=== PATIENT | female | born 1985 | race Caucasian/White ===

== ENCOUNTER 2020-07-07 16:50 | Emergency (ER) | payer BC ==
[~2020-07-07] VITALS: Ht 177.8 cm; Wt 71.1 kg
--- NOTE | 2020-07-07 17:12 | PHYS DOC ---
Adult General Chief Complaint Chief Complaint: CONGESTION HPI HPI Patient is a 34-year-old female presenting with COVID-19 symptoms. She was diagnosed with COVID-19 infection 6 days ago by her primary care doctor. She is currently on day 9 of symptoms. She reports classic URI-like symptoms, postnasal drip, and a dry nonproductive cough. She has been afebrile since onset but admits subjective fevers and chills. Patient reports being self quarantined and being able to tolerate p.o. intake despite decreased appetite. States her nausea is worsened in last 24 hours and has had increased difficulty keeping down p.o. fluids. She reports x1 episode of nonbloody nonbilious emesis yesterday evening. She has been afraid to consume anything by mouth today due to fear of nausea and emesis prompting her to visit our ER for evaluation Review of Systems Review of Systems Fourteen body systems of review of systems have been reviewed. See HPI for pertinent positives and negative responses, other swanson all other systems are negative, non-pertinent or non-contributory Physical Exam Physical Exam General: Appears well, non toxic, and comfortable Skin: Warm, dry. Normal for ethnicity. HEENT: Atraumatic. PERRLA. Rhinorrhea and congestion, postnasal drip present. Nasal turbinates boggy b/l. Moist mucous membranes. Uvula midline. Maintaining secretions. No phonation changes. Neck: Trachea midline. Normal ROM. No stridor. Respiratory: Normal WOB. CTAB w/o w/r/r. No tachypnea. Cardiovascular: Regular rate and rhythm. Normal peripheral perfusion. Abdomen: Soft. Non tender. No distension. Back: Normal ROM. Musculoskeletal: No swelling or deformity. Neuro: Alert and oriented x 4. MAEE. Lymph: No cervical LAD. Psych: Normal affect and mood. Current Patient Data Vital Signs Vital Signs Date Time Temp Pulse Resp B/P (MAP) Pulse Ox O2 Delivery O2 Flow Rate FiO2 07/07/20 17:09 98.1 96 18 129/86 (100) 99 Room Air EKG EKG [] Radiology/Procedures Radiology/Procedures EXAM: CHEST ONE VIEW. HISTORY: COVID-19, shortness of breath. COMPARISON: None. FINDINGS: A frontal view of the chest is obtained. There are mild airspace infiltrates in the left base. There is no pneumothorax or pleural effusion. The heart is not enlarged. Calcific densities project along the left humeral greater tuberosity. IMPRESSION: 1. Mild left basilar infiltrates. 2. Correlate for calcific tendinitis of the left rotator cuff insertion. Electronically signed by: Shelby Joy MD (07/07/2020 6:07 PM) [facility] Heart Score HEART Score for Chest Pain: HEART Score for Chest Pain Response (Comments) Value History Slighlty/Non-Suspicious 0 Age < 45 0 Risk Factors No Risk Factors 0 Total 0 Risk Factors: Risk Factors: DM, Current or recent (<one month) smoker, HTN, HLP, family history of CAD, obesity. Risk Scores: Risk Factors: DM, Current or recent (<one month) smoker, HTN, HLP, family history of CAD, obesity. Course & Med Decision Making Course & Med Decision Making Pertinent Labs and Imaging studies reviewed. (See chart for details) Discussed with the patient all findings and diagnostic testing as well as the need to follow up with PCP for further evaluation and treatment when safe to do so or return to the ED if any new or worsening symptoms. I advised need for continue self quarantine and supportive care practices. Patient responded to Zofran today, I have given her prescription for this for as needed nausea. I discussed no indication for further diagnostic work-up or intervention in ER setting today. Joint decision to defer antibiotic use at this time. Strict return precautions were also discussed at length with good understanding by mahnaz quintero. Patient voiced understanding and agreement with the plan. Hemodynamically stable at time of disposition. Dragon Disclaimer Dragon Disclaimer This electronic medical record was generated, in whole or in part, using a voice recognition dictation system. PERC Rule for PE PERC Rule for PE Response (Comments) Value Age > 50: No 0 HR > 100: No 0 Sa02 on room air <95%: No 0 Unilateral leg swelling: No 0 Hemoptysis: No 0 Recent surgery or trauma: No 0 Prior PE or DVT: No 0 Hormone use: No 0 Total 0 Departure Departure: Impression: Primary Impression: COVID-19 Disposition: 01 DC HOME SELF CARE/HOMELESS Condition: STABLE Referrals: LIS WADSWORTH MD (PCP) Patient Instructions: Nausea and Vomiting Scripts Ondansetron Hcl (ZOFRAN) 4 Mg Tablet 1 TAB PO PRN Q6-8HRS for NAUSEA, #15 TAB Prov: RISA BOATENG DO 07/07/20 RISA BOATENG DO Jul 07, 2020 17:12
[2020-07-07] MEDS ORDERED: ONDANSETRON ODT 4 MG TAB.RAPDIS PO ONE (17:30)
[2020-07-07] MEDS ORDERED: ONDA4TAB7 PO (17:52)
[2020-07-07 18:05] VITALS: BP 109/71
--- NOTE | 2020-07-07 18:09 | RAD ---
EXAM: CHEST ONE VIEW. HISTORY: COVID-19, shortness of breath. COMPARISON: None. FINDINGS: A frontal view of the chest is obtained. There are mild airspace infiltrates in the left base. There is no pneumothorax or pleural effusion. T he heart is not enlarged. Calcific densities project along the left humeral greater tuberosity. IMPRESSION: 1. Mild left basilar infiltrates. 2. Correlate for calcific tendinitis of the left rotator cuff insertion. Electronically signed by: Shelby Joy MD (07/07/2020 6:07 PM) [facility]
== END 2020-07-07 18:12 | disposition home or self-care (01) ==
LOC: ER 16:50
DX: U07.1 COVID-19 (principal); R11.2 Nausea with vomiting, unspecified
CPT/HCPCS: 71045; 99283; Q0162